=== PATIENT | male | born 1960 | race Caucasian/White ===

== ENCOUNTER → 2020-03-16 09:07 | Outpatient (BNVA) | payer OTHER, SELFPAY | PROVIDERS: PCP Family Medicine; Visit Provider Physician Assistant Medical | DX: S33.9XXA Sprain of unspecified parts of lumbar spine and pelvis, initial encounter (principal); X50.3XXA Overexertion from repetitive movements, initial encounter | CPT/HCPCS: 99202 ==

== ENCOUNTER → 2020-03-19 13:47 | Outpatient (BNVA) | payer OTHER, SELFPAY | PROVIDERS: PCP Family Medicine; Visit Provider Physician Assistant Medical | DX: S33.9XXA Sprain of unspecified parts of lumbar spine and pelvis, initial encounter (principal); X50.3XXA Overexertion from repetitive movements, initial encounter | CPT/HCPCS: 99213 ==

== ENCOUNTER → 2020-03-24 08:11 | Outpatient (BNVA) | payer OTHER, SELFPAY | PROVIDERS: PCP Family Medicine; Visit Provider Physician Assistant Medical | DX: S33.9XXA Sprain of unspecified parts of lumbar spine and pelvis, initial encounter (principal); X50.3XXA Overexertion from repetitive movements, initial encounter | CPT/HCPCS: 99213 ==

== ENCOUNTER → 2022-04-21 09:11 | Outpatient (BNVA) | payer OTHER, SELFPAY | PROVIDERS: PCP Family Medicine; Visit Provider Physician Assistant | DX: S46.012A Strain of muscle(s) and tendon(s) of the rotator cuff of left shoulder, initial encounter (principal); X50.1XXA Overexertion from prolonged static or awkward postures, initial encounter | CPT/HCPCS: 73030; 99204 ==

== ENCOUNTER → 2022-04-27 10:06 | Outpatient (BNVA) | payer OTHER, SELFPAY | PROVIDERS: PCP Family Medicine; Visit Provider Physician Assistant Medical | DX: M25.512 Pain in left shoulder (principal) | CPT/HCPCS: 99213 ==

== ENCOUNTER → 2022-05-12 14:07 | Outpatient (BNVA) | payer OTHER, SELFPAY | PROVIDERS: PCP Family Medicine; Visit Provider Physician Assistant | DX: M24.812 Other specific joint derangements of left shoulder, not elsewhere classified (principal) | CPT/HCPCS: 99213 ==

== ENCOUNTER 2022-05-18 09:47 | Outpatient (REF) | payer OTHER, SELFPAY ==
--- NOTE | ~2022-05-18 | MR_ITS ---
EXAMINATION: MR SHOULDER WITHOUT CONTRAST, LEFT CLINICAL INFORMATION: Left shoulder pain following a lifting injury. Evaluate for internal derangement. Rotator cuff tendon tear. COMPARISON: Report from a left shoulder MRI dated 04/07/2005. Left shoulder radiographs dated 04/21/2022. TECHNIQUE: Multisequence MR imaging of the left shoulder was obtained without contrast on a high-field strength scanner. FINDINGS: ROTATOR CUFF: [id number] supraspinatus tendinosis with anterior bursal surface fraying/partial tearing measuring approximately 1.6 cm in AP dimension. More mild infraspinatus tendinosis with minimal focal intrasubstance insertional partial tearing measuring up to 0.3 cm. Mild subscapularis tendinosis with articular surface fraying/partial tearing. No full-thickness rotator cuff tendon tear. No muscle atrophy or fatty infiltration. BICEPS: Intact. CORACOACROMIAL ARCH: The undersurface of the acromion is minimally curved with lateral subacromial spurring. Moderate acromioclavicular osteoarthritis. Fluid within the subacromial-subdeltoid bursa with heterogeneous signal, consistent [id number] bursitis. LABRUM/CAPSULE: Linear fluid signal within the undersurface of the anterior and anteroinferior labrum, consistent with nondisplaced undersurface tearing. Anterior inferior paralabral cyst measuring up to 0.6 cm. Intact joint capsule. GLENOHUMERAL JOINT/MARROW: Intact articular cartilage. Trace glenohumeral joint effusion. MR/MR shoulder LT wo con IMPRESSION: 1. Diar-pl-[id number] supraspinatus tendinosis with anterior bursal surface fraying/partial tearing measuring 1.6 cm in AP dimension. Mild infraspinatus tendinosis with minimal focal intrasubstance insertional partial tearing. Mild subscapularis tendinosis with articular surface fraying/partial tearing. No full-thickness rotator cuff tendon tear. 2. Moderate acromioclavicular osteoarthritis with lateral subacromial spurring. 3. [id number] subacromial-subdeltoid bursitis. 4. Nondisplaced undersurface tearing of the anterior and anteroinferior labrum with a small anterior inferior paralabral cyst. 5. Trace glenohumeral joint effusion.
== END 2022-05-18 09:48 | disposition home or self-care (01) ==
LOC: HO.MRI 09:47
PROVIDERS: Visit Provider Internal Medicine
DX: S49.92XD Unspecified injury of left shoulder and upper arm, subsequent encounter (principal)
CPT/HCPCS: 73221

== ENCOUNTER → 2022-05-20 15:08 | Outpatient (BNVA) | payer OTHER, SELFPAY | PROVIDERS: PCP Family Medicine; Visit Provider Physician Assistant | DX: M24.812 Other specific joint derangements of left shoulder, not elsewhere classified (principal) | CPT/HCPCS: 99213 ==

== ENCOUNTER → 2023-06-01 11:02 | Outpatient (REF) | payer BC, SELFPAY | LOC: HO.SL 11:02 | PROVIDERS: PCP Internal Medicine; Visit Provider Internal Medicine | DX: G47.33 Obstructive sleep apnea (adult) (pediatric) (principal) | CPT/HCPCS: 95806 ==

== ENCOUNTER → 2023-06-01 19:00 | Outpatient (BNV) | payer BC, SELFPAY | PROVIDERS: PCP Internal Medicine; Visit Provider Internal Medicine | DX: G47.33 Obstructive sleep apnea (adult) (pediatric) (principal) | CPT/HCPCS: 95806 ==